=== PATIENT | female | born 2000 | race Caucasian/White ===

== ENCOUNTER 2025-03-12 12:32 | Emergency (ER) | payer OTHER ==
[~2025-03-12] VITALS: Ht 157.5 cm; Wt 58.0 kg
[2025-03-12 12:35] VITALS: BP 92/61; PULSE 75; RESP 18; TEMP 98.1; O2SAT 99
[2025-03-12 13:06] LABS: PLATELET COUNT (AUTO) 392 K/uL (150-450); RED BLOOD CELL COUNT(AUTO) 4.44 MIL/uL (4.00-5.20); RED CELL DISTRIBUTION WIDTH 14.1 % (11.5-14.5); WHITE BLOOD COUNT (AUTO) 9.0 K/uL (4.5-11.0)
[2025-03-12 13:33] LABS: CALCIUM, TOTAL 8.9 mg/dL (8.8-10.5); CREATININE 0.55 mg/dL (0.60-1.30); GLOMERULAR FILTR. RATE CALC > 60 mL/min (>60); GLUCOSE,RANDOM 77 mg/dL (70-110); SODIUM SERUM 139 mmol/L (136-145); UREA NITROGEN, BLOOD 10 mg/dL (7-18)
[2025-03-12] MEDS ORDERED: SODIUM CHLORIDE 0.9% 100 ML ONE (13:42)
[2025-03-12] MEDS ORDERED: IOHEXOL 300 MG/ML 100 ML VIAL ONE (13:42)
[2025-03-12] MEDS ORDERED: 0.9% SODIUM CHLORIDE 10 ML SYRINGE IVP ONE (13:42)
[2025-03-12 13:50] LABS: ASPARTATE AMINOTRANSFERASE 16 U/L (15-37); TOTAL PROTEIN, SERUM 7.7 g/dL (6.4-8.2)
[2025-03-12 14:16] LABS: HCG,QUANTITATIVE < 1 mIU/mL (0-6)
[2025-03-12] MEDS: MAG HYDROX/ALUMINUM HYD/SIMETH 30 ML SUSPENSION UDCUP PO ONE (14:52)
[2025-03-12] MEDS: ONDANSETRON HCL 4 MG/2 ML VIAL IVP ONE (14:52)
[2025-03-12] MEDS: FAMOTIDINE 20 MG/2 ML VIAL IVP ONE (14:52)
[2025-03-12] MEDS: SODIUM CHLORIDE 0.9% 1,000 ML IV ONE (14:53)
[2025-03-12] MEDS: KETOROLAC TROMETHAMINE 30 MG/ML VIAL IVP ONE (14:53)
[2025-03-12 15:35] LABS: APPEARANCE,URINE HAZY (CLEAR); GLUCOSE, URINE (UA) NEGATIVE (NEGATIVE); LEUKOCYTE ESTERASE ,URINE SMALL (NEGATIVE); NITRATE,URINE NEGATIVE (NEGATIVE); OCCULT BLOOD,URINE LARGE (NEGATIVE); SPECIFIC GRAVITIY, URINE 1.015 (1.003-1.030)
[2025-03-12 15:48] LABS: SQUAMOUS EPITHELIAL CELL,UR Rare /LPF (None Seen)
[2025-03-12] MEDS ORDERED: ACET-2247 PO (18:03)
[2025-03-12] MEDS ORDERED: ONDA-104 PO (18:03)
== END 2025-03-12 18:51 | disposition home or self-care (01) ==
LOC: EMS 12:32
DX: K80.20 Calculus of gallbladder without cholecystitis without obstruction (principal); R11.2 Nausea with vomiting, unspecified; R19.7 Diarrhea, unspecified; R05.9 Cough, unspecified; I10 Essential (primary) hypertension; N89.8 Other specified noninflammatory disorders of vagina
CPT/HCPCS: 99285; 74177; 96374; 76705; 96375; 80048; 80076; 81001; 83690; 84702; 85025; 36415; J1885; J3490; J2405; J7030; J7050; Q9967